=== PATIENT | female | born 2000 | race Caucasian/White ===

== ENCOUNTER 2018-02-22 13:29 | Emergency (ER) | payer OTHER, MEDICAID, SELFPAY ==
--- NOTE | 2018-02-22 13:44 | ED.WOUNDLAC ---
HPI - Wound/Laceration <DIANNA Nolasco - Last Filed: 02/22/18 22:15> General Chief Complaint: Wound/Laceration Stated Complaint: cut leg with glass Time Seen by Provider: 02/22/18 13:43 History of Present Illness HPI narrative: Healthy 17-year-old female here for complaint of laceration to her left lower extremity that happened after she dropped a glass bottle. She states that she had a soda bottle that was full of soda and dropped it on his side walk and it broke complete under pressure causing a piece of glass to come across and cut her leg. She denies any other injuries or concerns. Incident happened just prior to arrival. She does not know when her last tetanus was. She denies any other injuries or complaints. Related Data Home Medications Medication Instructions Recorded Confirmed No Known Home Medications 02/22/18 02/22/18 Review of Systems <DIANNA Nolasco - Last Filed: 02/22/18 22:15> Constitutional Denies chills, Denies fever(s), Denies lethargy and Denies weakness Eyes Denies change in vision, Denies eye discharge, Denies irritation and Denies loss of vision ENT Ears, Nose, Mouth, and Throat: Denies change in voice, Denies neck pain and Denies sore throat Cardiovascular Denies chest pain, Denies irregular heart rhythm, Denies lightheadedness, Denies palpitations, Denies dyspnea, Denies dyspnea on exertion and Denies orthopnea Respiratory Denies cough, Denies dyspnea, Denies dyspnea on exertion and Denies wheezing Gastrointestinal Gastrointestinal: Denies abdominal pain, Denies change in bowel habits, Denies diarrhea, Denies nausea and Denies vomiting Genitourinary Denies hematuria, Denies flank pain, Denies urinary incontinence and Denies urinary urgency Musculoskeletal Denies neck pain Comments: Laceration to left lower extremity Integumentary/Breasts Denies pruritus, Denies erythema, Denies rash and Denies wounds Neurologic Denies confusion, Denies loss of vision and Denies weakness Psychiatric Denies anxiety, Denies confusion, Denies depression, Denies homicidal ideation and Denies suicidal ideation Endocrine Denies palpitations Hematologic/Lymphatic Denies easy bruising Allergic/Immunologic Denies wheezing Exam <DIANNA Nolasco - Last Filed: 02/22/18 22:15> Initial Vital Signs Initial Vital Signs: Vital Signs Temperature 99.3 F 02/22/18 13:51 Pulse Rate 76 02/22/18 13:51 Respiratory Rate 18 02/22/18 13:51 Blood Pressure 120/69 02/22/18 13:51 Pulse Oximetry 97 02/22/18 13:51 Const General: cooperative and well developed Nutritional Appearance: well nourished Orientation: alert, awake, oriented x3 and not confused HENMT Mouth: oral mucosae normal and moist mucous membranes Eyes Conjunctivae: conjunctivae normal Sclera: sclerae normal Pupils: PERRL EOM: EOM intact bilaterally Resp Effort & Inspection: normal respiratory effort, able to speak in complete sentences, no respiratory distress and no use of accessory muscles Auscultation: clear to auscultation bilaterally, no rales, no rhonchi and no wheezes Cardio Rate: regular rate Rhythm: regular rhythm Heart Sounds: no click, no gallops, no murmurs and no rubs Pulses: normal peripheral pulses Skin General: no rashes or lesions noted, No jaundice and No petechiae Neuro General: alert, oriented x3, gait normal and no focal motor deficits Speech: speech normal Extrem Other: 3 cm laceration to the left brown area lateral aspect of the mid brown area. Distal sensation is intact. Distal pulses intact. Distal range of motion is intact. No foreign bodies. No deformities. <Len Waite DO - Last Filed: 02/23/18 08:33> Initial Vital Signs Initial Vital Signs: Vital Signs Temperature 99.3 F 02/22/18 13:51 Pulse Rate 76 02/22/18 13:51 Respiratory Rate 18 02/22/18 13:51 Blood Pressure 120/69 02/22/18 13:51 Pulse Oximetry 97 02/22/18 13:51 Procedures <DIANNA Nolasco - Last Filed: 02/22/18 22:15> Laceration Repair Laceration 1: Site: lower extremity Side (If applicable): left Size (cm): 3 Description: linear Depth: simple, single layer Local Anesthetic: lidocaine 1% Amount of anesthesia used (mL): 6 Pre-repair: wound explored and irrigated extensively Skin layer closed with: nylon Size (cm): 4-0 Number of sutures: 8 Technique: simple, interrupted Course <DIANNA Nolasco - Last Filed: 02/22/18 22:15> Orders Ordered: Discontinued Medications Acetaminophen (Tylenol) 650 mg PO NOW ONE Stop: 02/22/18 14:04 Last Admin: 02/22/18 14:17 Dose: 650 mg Diphtheria/Tetanus/Acell Pertussis (Adacel) 0.5 ml IM .ONCE ONE Stop: 02/22/18 14:04 Last Admin: 02/22/18 14:17 Dose: 0.5 ml Vital Signs - 8 hr 02/22/18 15:43 Temperature 99.0 F Pulse Rate 66 Respiratory Rate 18 Blood Pressure 98/62 Pulse Oximetry 99 <Len Waite DO - Last Filed: 02/23/18 08:33> Orders Ordered: Discontinued Medications Acetaminophen (Tylenol) 650 mg PO NOW ONE Stop: 02/22/18 14:04 Last Admin: 02/22/18 14:17 Dose: 650 mg Diphtheria/Tetanus/Acell Pertussis (Adacel) 0.5 ml IM .ONCE ONE Stop: 02/22/18 14:04 Last Admin: 02/22/18 14:17 Dose: 0.5 ml Vital Signs - 8 hr 02/22/18 15:43 Temperature 99.0 F Pulse Rate 66 Respiratory Rate 18 Blood Pressure 98/62 Pulse Oximetry 99 MDM - Wound/Laceration <DIANNA Nolasco - Last Filed: 02/22/18 22:15> Imaging Data tib fib: Radiologist's impression: Patient: Zoe Redman MR#: [id number] : 2000 Acct:[id number] Age/Sex: 17 / F Date of Service: 02/22/18 Loc: ED Accession Number: [id number] Procedure: XR tibia fibula LT 2V Ordering Provider: Ismael Warren PROCEDURE: XR TIBIA FIBULA RT 2V INDICATIONS: Laceration by broken glass to left proximal brown TECHNIQUE: 2 views of the tibia and fibula were acquired. COMPARISON: None. FINDINGS: Bones: No fractures or dislocations. No suspicious bony lesions. Soft tissues: No suspicious soft tissue calcifications or masses. No radiodense foreign bodies identified. IMPRESSION: 1. No fracture. No osseous lesion. If symptoms and/or clinical suspicion for pathology persists, further assessment with repeat radiographs (7-10 days) or advanced imaging (e.g. CT, MRI or bone scan) may be helpful. 2. No radiodense foreign bodies. Dictated by: Neda Mo MD, PhD on 02/22/2018 at 14:33 Approved by: Neda Mo MD, PhD on 02/22/2018 at 14:33 [facility] Narrative Medical decision making narrative: X-ray of the left lower extremity tib-fib area was obtained and was negative for any acute fractures or foreign bodies. Laceration was closed with 8 5-0 nylon sutures with good wound closure obtained. Sutures removed in 10 days. Keep wound area clean and dry for the next 24 hr. After that timeframe a shower briefly. Dress wound afterwards with bacitracin dressing. Dress wound daily with bacitracin and dressing until healed. [id number] Tylenol Motrin as needed for any discomfort. Follow up with primary care provider. Return emergency room for any worsening symptoms. Discharge Plan Departure Patient Disposition: Home, Self-Care Clinical Impression: Laceration of left lower extremity Discharge Date/Time: 02/22/18 15:44 Interventions: ED Discharge Assessment Last Done: 02/22/18 15:43 Instructions: DI for Laceration Repair -- Simple Activity Restrictions/Additional Instructions: X-ray of the left lower leg was negative for any fractures or foreign bodies. Laceration to left lower leg was closed with 8 sutures. The sutures will need to be removed in 10 days.Keep wound area clean and dry for the next 24 hr. After that timeframe a shower briefly. Dress wound afterwards with bacitracin dressing. Dress wound daily with bacitracin and dressing until healed. [id number] Tylenol Motrin as needed for any discomfort. Follow up with primary care provider. Return emergency room for any worsening symptoms. Prescriptions: No Action No Known Home Medications RF: 0 Referrals: Megan Neff PA-C [Primary Care Provider] - <Len Waite DO - Last Filed: 02/23/18 08:33> Cosign ED Attending Cocoature Attestation: I was immediately available in the department for consultation. Documentation has been reviewed. I agree with assessment and plan.
[2018-02-22 13:51] VITALS: BP 120/69; PULSE 76; RESP 18; TEMP 37.4; O2SAT 97
--- NOTE | 2018-02-22 14:03 | DI.RAD.S_ITS ---
PROCEDURE: XR TIBIA FIBULA RT 2V INDICATIONS: Laceration by broken glass to left proximal brown TECHNIQUE: 2 views of the tibia and fibula were acquired. COMPARISON: None. FINDINGS: Bones: No fractures or dislocations. No suspicious bony lesions. Soft tissues: No suspicious soft tissue calcifications or masses. No radiodense foreign bodies identified. IMPRESSION: 1. No fracture. No osseous lesion. If symptoms and/or clinical suspicion for pathology persists, further assessment with repeat radiographs (7-10 days) or advanced imaging (e.g. CT, MRI or bone scan) may be helpful. 2. No radiodense foreign bodies. Dictated by: Neda Mo MD, PhD on 02/22/2018 at 14:33 Approved by: Neda Mo MD, PhD on 02/22/2018 at 14:33
[2018-02-22] MEDS: TET,DIPH,PERTUSS(ACELL),VAC/PF 0.5 ML SYRINGE IM (14:17)
[2018-02-22] MEDS: ACETAMINOPHEN 325 MG TABLET 650 MG PO (14:17)
--- NOTE | 2018-02-22 14:36 | PC.NURSE ---
patient was at a local store when she dropped a drink bottle causing it to shatter and a piece of the glass cut her left anterior lower leg. she is unsure of when her last tetanus shot was. Denies any other injuries or cuts. Tetanus was updated at today's visit.
[2018-02-22 15:43] VITALS: BP 98/62; PULSE 66; RESP 18; TEMP 37.2; O2SAT 99
== END 2018-02-22 15:44 | disposition home or self-care (01) ==
PROVIDERS: Emergency Provider Nurse Practitioner Family; Family Provider Physician Assistant; PCP Physician Assistant
DX: S81.812A Laceration without foreign body, left lower leg, initial encounter (principal); W25.XXXA Contact with sharp glass, initial encounter
CPT/HCPCS: 12002; 73590; 90471; 99283; 90715

== ENCOUNTER → 2021-03-18 13:50 | Outpatient (CLI) | payer OTHER, MEDICAID, SELFPAY ==
[2021-03-18 15:45] LABS: Urine N gonorrhoeae NOT DETECTED
[2021-03-18 15:47] LABS: Urine Chlamydia NOT DETECTED
== END ==
PROVIDERS: PCP Family Medicine; Visit Provider Physician Assistant
DX: Z11.3 Encounter for screening for infections with a predominantly sexual mode of transmission (principal)
CPT/HCPCS: 81002; 87210; 87491; 87591

== ENCOUNTER → 2021-04-18 15:15 | Outpatient (CLI) | payer OTHER, MEDICAID, SELFPAY | PROVIDERS: PCP Family Medicine; Referring Provider Nurse Practitioner; Visit Provider Nurse Practitioner | DX: N34.3 Urethral syndrome, unspecified (principal) | CPT/HCPCS: 81002; 87077; 87086; 87186 ==

== ENCOUNTER → 2021-06-21 15:48 | Outpatient (CLI) | payer OTHER, MEDICAID, SELFPAY | PROVIDERS: PCP Family Medicine; Visit Provider Physician Assistant | DX: R35.0 Frequency of micturition (principal) | CPT/HCPCS: 81002; 87077; 87086; 87186 ==

== ENCOUNTER → 2021-07-19 14:45 | Outpatient (CLI) | payer OTHER, MEDICAID, SELFPAY ==
[2021-07-19 15:55] LABS: COVID19 -Nasal RAPID Negative (Negative)
== END ==
PROVIDERS: PCP Family Medicine; Visit Provider Physician Assistant
DX: Z20.822 Contact with and (suspected) exposure to COVID-19 (principal)
CPT/HCPCS: 87635

== ENCOUNTER → 2021-07-21 12:31 | Outpatient (CLI) | payer OTHER, MEDICAID, SELFPAY ==
[2021-07-21 13:24] LABS: COVID19 -Nasal RAPID POSITIVE (Negative)
== END ==
PROVIDERS: PCP Family Medicine; Visit Provider Physician Assistant
DX: Z20.822 Contact with and (suspected) exposure to COVID-19 (principal)
CPT/HCPCS: 87635

== ENCOUNTER → 2021-08-08 12:15 | Outpatient (CLI) | payer OTHER, MEDICAID, SELFPAY ==
[2021-08-08 14:04] LABS: COVID19 -Nasal RAPID Negative (Negative)
== END ==
PROVIDERS: PCP Family Medicine; Visit Provider Nurse Practitioner Critical Care Medicine
DX: Z20.822 Contact with and (suspected) exposure to COVID-19 (principal); J02.9 Acute pharyngitis, unspecified
CPT/HCPCS: 87070; 87077; 87635; 87880

== ENCOUNTER 2022-12-30 13:41 | Emergency (ER) | payer OTHER, MEDICAID, SELFPAY ==
[2022-12-30 13:50] VITALS: BP 136/73; PULSE 70; RESP 16; TEMP 36.8; O2SAT 99; BMI 20.9
--- NOTE | 2022-12-30 14:16 | ED_ITS ---
HPI - Wound/Laceration <DIANNA Almonte - Last Filed: 12/30/22 14:52> General Chief Complaint: Wound/Laceration Stated Complaint: SIB- L upper arm deep cut Time Seen by Provider: 12/30/22 14:12 Source: patient Mode of arrival: Ambulatory History of Present Illness HPI narrative: This is a 22-year-old female with history of self-harm by cutting, states it she had a hard time this morning and cut herself pretty bad and regrets it. States that she is talked with her therapist about this and denies any current homicidal or suicidal ideation or intention. She states that she cuts herself to help control the situation, came in for evaluation of her wound, not currently bleeding, states that she is a clean kitchen knife and her tetanus is up-to-date. Patient would like a test. Patient states that her and her boyfriend her , she is currently on her menses, having some struggles processing how to move forward but denies any suicidal or homicidal ideation. She is future oriented, states that she took her stress out on herself today because she was feeling poorly. She regarded it immediately and has talked to her therapist, her family and her support network about this. Related Data Home Medications Medication Instructions Recorded Confirmed fluoxetine 20 mg capsule 40 mg PO DAILY 09/28/20 08/08/21 Previous Rx's Medication Instructions Recorded human papillomav vac,9-sofia(PF) 0.5 0.5 ml IM ONCE #0.5 mL 07/15/18 mL IM suspension (Gardasil 9 (PF)) fluconazole 150 mg tablet 150 mg PO DAILY vag yeast 1 dose 03/18/21 (Diflucan) #1 tab phenazopyridine 100 mg tablet 100 mg PO TID PRN pain 6 doses #6 06/21/21 (Pyridium) tabs ondansetron 4 mg disintegrating 4 mg PO Q8H PRN nausea and 08/08/21 tablet vomiting #10 tabs Allergies Allergy/AdvReac Type Severity Reaction Status Date / Time No Known Allergies Allergy Uncoded 08/08/21 12:14 Patient History <DIANNA Almonte - Last Filed: 12/30/22 14:52> Medical History Anxiety Depression Social History Smoking Status: Current every day smoker Smokeless tobacco user: other (vape) alcohol intake: current substance use type: does not use Smoking Status: Current every day smoker tobacco type: vaping alcohol intake frequency: holidays/special occasions only Substance Use Type: marijuana Exam <DIANNA Almonte - Last Filed: 12/30/22 14:52> Narrative Exam Narrative: Reviewed vitals signs and nursing notes. General: Pleasant, sitting upright, in no acute distress, well groomed, afebrile Patient's left forearm has a linear laceration approximately 2 cm, no bleeding at this time, superficial, no evidence of tendon injury, vascular injury, or deep structure involvement. Skin: brisk capillary refill, without rash or wound Neuro: clear speech and normal cognition, A&O x3, GCS 15, no focal motor or sensation deficits Initial Vital Signs Initial Vital Signs: Vital Signs Temperature 98.2 F 12/30/22 13:50 Pulse Rate 70 12/30/22 13:50 Respiratory Rate 16 12/30/22 13:50 Blood Pressure 136/73 12/30/22 13:50 Pulse Oximetry 99 12/30/22 13:50 Oxygen Delivery Method Room Air 12/30/22 13:50 <Soumya Rodriguez DO - Last Filed: 12/30/22 19:09> Initial Vital Signs Initial Vital Signs: Vital Signs Temperature 98.2 F 12/30/22 13:50 Pulse Rate 70 12/30/22 13:50 Respiratory Rate 16 12/30/22 13:50 Blood Pressure 136/73 12/30/22 13:50 Pulse Oximetry 99 12/30/22 13:50 Oxygen Delivery Method Room Air 12/30/22 13:50 Procedures <DIANNA Almonte - Last Filed: 12/30/22 14:52> Laceration Repair Laceration 1: Site: upper extremity Size (cm): 2 Description: linear Depth: simple, single layer Local Anesthetic: lidocaine 2% Amount of anesthesia used (mL): 3 Pre-repair: wound explored, irrigated extensively and deep structures intact Skin layer closed with: nylon Skin layer suture size: 6-0 Number of sutures: 6 Technique: simple, interrupted and horizontal mattress Course <DIANNA Almonte - Last Filed: 12/30/22 14:52> Orders Ordered: ED Orders 12/30/22 14:01 Consult to [facility] Medical Radiation Therapist Stat Discontinued Medications Diphtheria/Tetanus/Acell Pertussis (Tet,Diph,Pertuss(Acell),Vac/Pf 0.5 Ml Syringe) 0.5 ml IM .ONCE ONE Stop: 12/30/22 14:14 Last Admin: 12/30/22 14:19 Dose: Not Given Documented By: PEYTON Lidocaine HCl (Lidocaine 2% Inj Sdv 5ml) 5 ml INJ INTRA-OP ONE Stop: 12/30/22 14:14 Last Admin: 12/30/22 14:24 Dose: 5 ml Documented By: PEYTON Vital Signs Vital signs: Vital Signs - 8 hr 12/30/22 13:50 Temperature 98.2 F Pulse Rate 70 Respiratory Rate 16 Blood Pressure 136/73 Pulse Oximetry 99 Oxygen Delivery Method Room Air <Soumya Rodriguez DO - Last Filed: 12/30/22 19:09> Orders Ordered: ED Orders 12/30/22 14:01 Consult to [facility] Medical Radiation Therapist Stat Discontinued Medications Diphtheria/Tetanus/Acell Pertussis (Tet,Diph,Pertuss(Acell),Vac/Pf 0.5 Ml Syringe) 0.5 ml IM .ONCE ONE Stop: 12/30/22 14:14 Last Admin: 12/30/22 14:19 Dose: Not Given Documented By: PEYTON Lidocaine HCl (Lidocaine 2% Inj Sdv 5ml) 5 ml INJ INTRA-OP ONE Stop: 12/30/22 14:14 Last Admin: 12/30/22 14:24 Dose: 5 ml Documented By: PEYTON Vital Signs Vital signs: Vital Signs - 8 hr 12/30/22 13:50 Temperature 98.2 F Pulse Rate 70 Respiratory Rate 16 Blood Pressure 136/73 Pulse Oximetry 99 Oxygen Delivery Method Room Air MDM - Wound/Laceration <DIANNA Almonte - Last Filed: 12/30/22 14:52> MDM Narrative Medical decision making narrative: Chief Complaint: Self-inflicted laceration Primary historian: Patient Multiple etiologies for patient's complaint considered including, but not limited to: Skin laceration, tendon injury, vascular injury, muscle laceration I have independently reviewed the patient's vital signs and nursing notes as well as prior records if available. Course of care: Social work when into meet the patient at 14:15 Patient met with social work, that went well, she has adequate support and has met with her therapist today. She does not have active suicidal ideation, her wound was repaired with 6 sutures, 1 mattress suture and the rest were simple, good wound edge approximation, patient's test was negative. She will follow up with her supportive network as needed, she is tearful grateful for her care, pleasant and cooperative. Her tetanus was updated a couple of years ago so no tetanus indicative today. Social considerations that may affect disposition: none Questions are addressed and there is agreement with the plan and for follow-up. I consulted with the ED attending physician Dr. Rodriguez as needed for higher level of care considerations and they were available for discussion and recommend ations regarding plan of care and diagnostic testing. Patient is appropriate for outpatient management. Discharge Plan Departure Patient Disposition: Home Clinical Impression: Self-inflicted laceration of left wrist Instructions: DI for Suture Removal, DI for Laceration Repair -- Complex Suture Activity Restrictions/Additional Instructions: *You have been diagnosed with a laceration to your left eye, thank you for coming in today and trusting us with your care, I am sorry for her you been feeling. Please follow-up with your support, crisis triage, and anybody who you trust. You have 6 sutures, please have these removed in 7 days, keep it clean and covered with a Band-Aid, apply antibiotic ointment as needed. *What to do: *Please continue to take your regular medications as directed. [ ] New medication prescriptions sent to your pharmacy: [ ] [ ] New medication written as a paper prescription [x] No new medications given *Please call and schedule follow up with your primary care provider in 2-3 days, at least for an update. Let them know you were seen in the Emergency Department for the above problem. We will electronically transmit a record of today's note if your PCP or specialist is in our system. *If you do not have a primary care provider please contact [phone] to establish care with one of the [facility] primary care providers. *Return to the Emergency Department for worsening symptoms, inability to keep liquids down, fever greater than 101F, chills, or other concerning symptom. Prescriptions: No Action fluoxetine 20 mg capsule 40 mg PO DAILY phenazopyridine [Pyridium] 100 mg tablet 100 mg PO TID PRN (Reason: pain) Qty: 6 0RF ondansetron 4 mg tablet,disintegrating 4 mg PO Q8H PRN (Reason: nausea and vomiting) Qty: 10 0RF human papillomav vac,9-sofia(PF) [Gardasil 9 (PF)] 0.5 mL suspension 0.5 ml IM ONCE Qty: 0.5 0RF fluconazole [Diflucan] 150 mg tablet 150 mg PO DAILY Qty: 1 0RF Rx Instructions: administer on day 1 of therapy Referrals: Deysi Smith DO [Primary Care Provider] - Stand Alone Forms: Patient Portal/API <Soumya Rodriguez DO - Last Filed: 12/30/22 19:09> Cosign ED Attending Cosignature Attestation: I was immediately available in the department for consultation. Documentation has been reviewed.
[2022-12-30] MEDS: LIDOCAINE 2% INJ SDV 5ML 5 ML INJ (14:24)
--- NOTE | 2022-12-30 14:38 | CM.SWNOTE ---
[employer]OR [employer] Assessment Note Patient is 22 y/o female who presents to ED due to concern for self injury with intent to hurt self for control. Patient endorses hx of self harm and denies SI and HI. Patient requests to speak with SUPERVISOR [employer]ORAT[employer]. SUPERVISOR LABORATORY enters room to meet with patient and RN. Patient endorses that she had an argument with her mother last night. Patient endorses she had an argument with her boyfriend this morning and proceeded to cut self with knife. Patient endorses she presents to ED to ensure her injury is going to heal and will not get infected. Patient presents as tearful, A/Ox4 and endorses remorse in harming herself. Patient endorses concern for anyone to find out about what [place] Patient endorses she has a counselor named Toby Bailon in [place] and she has an appt with her every Wednesday. Patient endorses her safety and denies intent to harm herself again. Patient endorses she is working on coping strategies in therapy. Patient endorses preference to d/c to home and states she plans to be with friends since she has the day off work. SUPERVISOR LABORATORY provides patient with list of crisis contacts. It is the opinion of this SUPERVISOR LAB[employer]ATORY that patient is safe to d/c to home. Plan: Patient to d/c to home upon medical clearance, patient to f/u with therapist and f/u with crisis contacts as needed. Kendra Lockwood, [employer]
== END 2022-12-30 14:48 | disposition home or self-care (01) ==
PROVIDERS: Emergency Provider Nurse Practitioner Critical Care Medicine; PCP Family Medicine
DX: S61.512A Laceration without foreign body of left wrist, initial encounter (principal); X78.9XXA Intentional self-harm by unspecified sharp object, initial encounter
CPT/HCPCS: 12001; 81025; 99283

== ENCOUNTER 2023-02-13 17:36 | Emergency (ER) | payer OTHER, MEDICAID, SELFPAY ==
[2023-02-13 18:06] VITALS: BP 135/76; PULSE 74; RESP 19; TEMP 36.4; O2SAT 100; BMI 20.7
--- NOTE | 2023-02-13 18:10 | DI.RAD.S_ITS ---
PROCEDURE: XR ACUTE ABDOMEN SERIES INDICATIONS: consitpated. TECHNIQUE: One view chest and two views of the abdomen were acquired. COMPARISON: None. FINDINGS: Surgical changes and devices: Status post ORIF of the left clavicle. Chest: Lungs are clear. Heart size is normal. No pleural effusions. No pneumoperitoneum. Abdomen: Bowel gas pattern is nonobstructive. No suspicious calcifications. Visualized solid organ contours appear normal. Moderate fecal burden seen in the region of the ascending colon and distal descending colon. Bones: No suspicious bony lesions. IMPRESSION: Nonobstructive bowel gas pattern. Moderate fecal load noted in the ascending colon and descending colon. No acute cardiopulmonary abnormalities. Dictated by: Driss Alcaraz M.D. on 02/13/2023 at 18:30 Approved by: Driss Alcaraz M.D. on 02/13/2023 at 18:31
--- NOTE | 2023-02-13 20:49 | ED.GENADULT ---
HPI - General Adult General Chief complaint: Abdominal Pain Stated complaint: Constipation, ABD pain Time Seen by Provider: 02/13/23 20:48 Source: patient Mode of arrival: Family Vehicle History of Present Illness HPI narrative: 22-year-old woman with a history of anxiety depression and intermittent episodes of constipation. She states that she typically has a bowel movement most days. She does not have intermittent diarrhea and constipation. She notes that she has not had a bowel movement for the past 5 days and is having increasing left-sided abdominal pain. She states that she has not tried any laxatives because she has heard that they can be addicting. She denies fevers, cough, chills, vomiting. Related Data Home Medications Medication Instructions Recorded Confirmed fluoxetine 20 mg capsule 40 mg PO DAILY 09/28/20 08/08/21 Previous Rx's Medication Instructions Recorded human papillomav vac,9-sofia(PF) 0.5 0.5 ml IM ONCE #0.5 mL 07/15/ mL IM suspension (Gardasil 9 (PF)) fluconazole 150 mg tablet 150 mg PO DAILY vag yeast 1 dose 03/18/21 (Diflucan) #1 tab phenazopyridine 100 mg tablet 100 mg PO TID PRN pain 6 doses #6 06/21/21 (Pyridium) tabs ondansetron 4 mg disintegrating 4 mg PO Q8H PRN nausea and 08/08/21 tablet vomiting #10 tabs Allergies Allergy/AdvReac Type Severity Reaction Status Date / Time No Known Allergies Allergy Uncoded 02/13/23 18:10 Review of Systems Review of Systems Narrative: Pertinent positive and negative findings as per HPI Patient History Medical History Anxiety Depression Social History Smoking Status: Current every day smoker Smokeless tobacco user: other (vape) alcohol intake: current substance use type: does not use Smoking Status: Current every day smoker tobacco type: vaping alcohol intake frequency: holidays/special occasions only Substance Use Type: marijuana Exam Initial Vital Signs Initial Vital Signs: Vital Signs Temperature 97.6 F 02/13/23 18:06 Pulse Rate 74 02/13/23 18:06 Respiratory Rate 19 02/13/23 18:06 Blood Pressure 135/76 02/13/23 18:06 Pulse Oximetry 100 02/13/23 18:06 Oxygen Delivery Method Room Air 02/13/23 18:06 General: Healthy appearing, in no acute distress. Able to give a complete and coherent history. Well-nourished well-developed Respiratory: Lungs are clear to auscultation, no wheezing no rales no rhonchi. Full and symmetrical air movement Cardiac: Regular rate and rhythm no murmurs no bruits Abdomen: Soft, nontender, good bowel tones, no flank pain Skin: Warm and dry, no rashes Neurologic: Grossly neurologically intact with no obvious asymmetries or abnormalities Extremities: No trauma, well perfused Psych: Cooperative, appropriate insight and affect Course Orders Ordered: Discontinued Medications Magnesium Citrate (Magnesium Citrate 300 Ml Solution) 300 ml PO NOW ONE Stop: 02/13/23 20:59 Last Admin: 02/13/23 21:07 Dose: 300 ml Documented By: ELLI Vital Signs Vital signs: Vital Signs - 8 hr 02/13/23 18:06 Temperature 97.6 F Pulse Rate 74 Respiratory Rate 19 Blood Pressure 135/76 Pulse Oximetry 100 Oxygen Delivery Method Room Air Medical Decision Making [facility] Narrative Medical decision making narrative: CC: Abdominal pain with no bowel movement for 5 days, acute issue uncertain prognosis Complicating co-morbidities: Depression with anxiety Data collected from: patient, partner Differential considered: The appendicitis, diverticulitis, bowel obstruction, pelvic inflammatory disease, constipation Exam documented above, pertinent findings include: Fair benign exam Imaging studies independently reviewed: Abdominal x-ray shows moderate amount of fecal loading Treatments: She is discharged home with a bottle of magnesium citrate Discussion: 22-year-old woman with fairly benign exam moderate abdominal pain with x-ray suggesting fecal loading and no bowel movement for the last 5 days. Discussed use of MiraLax if she goes more than a day without a bowel movement and she is discharged home with a bottle of magnesium citrate fully to encourage significant bowel movement and resolution of her pain. Reviewed signs and symptoms of appendicitis, reasons to return to the emergency department and she is safe for discharge home Discharge Plan Departure Patient Disposition: Home Clinical Impression: Constipation Qualifiers: Constipation type: unspecified constipation type Qualified Code(s): K59.00 - Constipation, unspecified Abdominal pain Qualifiers: Abdominal location: generalized Qualified Code(s): R10.84 - Generalized abdominal pain Instructions: DI for Constipation Activity Restrictions/Additional Instructions: Thank you for coming in today I suspect that your abdominal pain really is all from constipation. Your x-ray shows quite a bit of stool and no other significant findings. When going to suggest that you drank the whole bottle of magnesium citrate and see if that helps gets things moving. Increasing water extra fruit, the cheries or ripe right now and they are great to help with constipation, are all helpful. For your chronic constipation, I would recommend getting some MiraLax, the generic version is just fine. This is not in fact a laxative, it just pulls water into your colon and causes softer stool. I would recommend a capful a day to help prevent constipation. If you find that you are getting worse or develop any new symptoms, please feel free to return to the emergency department for further evaluation. Prescriptions: No Action fluoxetine 20 mg capsule 40 mg PO DAILY phenazopyridine [Pyridium] 100 mg tablet 100 mg PO TID PRN (Reason: pain) Qty: 6 0RF ondansetron 4 mg tablet,disintegrating 4 mg PO Q8H PRN (Reason: nausea and vomiting) Qty: 10 0RF human papillomav vac,9-sofia(PF) [Gardasil 9 (PF)] 0.5 mL suspension 0.5 ml IM ONCE Qty: 0.5 0RF fluconazole [Diflucan] 150 mg tablet 150 mg PO DAILY Qty: 1 0RF Rx Instructions: administer on day 1 of therapy Referrals: Deysi Smith DO [Primary Care Provider] - Stand Alone Forms: Patient Portal/API
[2023-02-13 21:05] VITALS: BP 118/72; PULSE 62; RESP 18; O2SAT 98
[2023-02-13] MEDS: MAGNESIUM CITRATE 300 ML SOLUTION PO (21:07)
== END 2023-02-13 21:07 | disposition home or self-care (01) ==
PROVIDERS: Emergency Provider Emergency Medicine; PCP Family Medicine
DX: R10.84 Generalized abdominal pain (principal); K59.00 Constipation, unspecified
CPT/HCPCS: 74022; 99283

== ENCOUNTER 2023-04-13 12:10 | Emergency (ER) | payer OTHER, MEDICAID, SELFPAY ==
[2023-04-13 12:10] VITALS: BP 166/104; PULSE 110; RESP 16; TEMP 37.1; O2SAT 97; BMI 19.4
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
--- NOTE | 2023-04-13 12:35 | PC.NURSE ---
Phone call from mother Velvet Weeks: [phone]: fully aware of privacy issues, wanting to give back ground and information. Mother states that patient attempted suicide one month ago. has recently been violent and more reactive over past 2-3 days. has h/o cutting behaviors. Noted break up with boyfriend 2 days ago. Mother states she has been abusing benzodiazapine and possible opiods. Pt's mother and sister have received multiple texts stating that she is going to kill herself. They are going to email me screen shots of both. Dr. Khan and Kyaw PROGRAM COORDINATOR aware.
[2023-04-13] MEDS: LORazepam 0.5 MG TABLET 1 MG PO (12:52)
[2023-04-13 13:01] LABS: Add Manual Diff / Slide Review NO; Basophils Absolute Auto 0 /uL (0-100); Basophils Percent Auto 0.2 % (0-2); Eosinophils Absolute Auto 0 /uL (0-450); Hematocrit 37.7 % (36-46); Hemoglobin 12.8 g/dL (12.0-16.0); Lymphocytes Absolute Auto 1500 /uL (1100-4500); Lymphocytes Percent Auto 9.5 % (25-40); Mean Corpuscular Hemoglobin 31.3 PG (26-34); Monocytes Absolute Auto 800 /uL (0-900); Neutrophils Absolute Auto 13200 /uL (1500-7000); Neutrophils Percent Auto 85.3 % (50-75); Platelet Count 270 X10^3/uL (150-400); Red Cell Distribution Width 11.8 % (11.6-14.8); White Blood Cell Count 15.5 X10^3/uL (4.5-11.0)
[2023-04-13 13:15] LABS: Alanine Aminotransferase 18 IU/L (<35); Albumin 5.1 g/dL (3.5-5.0); Albumin Globulin Ratio 1.5 (1.0-2.8); Alkaline Phosphatase 57 U/L (38-126); Aspartate Aminotransferase 28 IU/L (14-36); BUN Creatinine Ratio 32.9 (6-22); Bilirubin Total 2.1 mg/dL (0.2-1.3); Blood Urea Nitrogen 24 mg/dL (7-17); Calcium 9.5 mg/dL (8.4-10.2); Carbon Dioxide 20 mmol/L (22-32); Chloride 104 mmol/L (98-107); Estimated Glomerular Filt Rate > 60 mL/min (>60); Ethanol (ETOH) < 10 mg/dL; Globulin 3.5 g/dL (1.7-4.1); Glucose 98 mg/dL (70-100); HEMOLYSIS < 15 (0-50); Sodium 139 mmol/L (137-145); Total Protein 8.6 g/dL (6.3-8.2)
[2023-04-13 13:20] LABS: UR Morphine/Opiate cutoff 300 Negative (Negative); Ur Creatinine Normal (Normal); Ur Specific Gravity Normal (Normal); Urine Amphetamines Negative (Negative); Urine Barbiturates Negative (Negative); Urine Benzodiazepines Positive (Negative); Urine Cocaine Negative (Negative); Urine MDMA Negative (Negative); Urine Methamphetamines Negative (Negative); Urine Phencyclidine Negative (Negative); Urine Tetrahydrocannabinol Positive (Negative); Urine pH Normal (Normal)
[2023-04-13 13:21] LABS: Urine Methadone Negative (Negative); Urine Oxycodone Negative (Negative); Urine Tricyclic Antidepressant Negative (Negative)
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
[2023-04-13 13:26] LABS: COVID19 -Nasal RAPID Negative (Negative)
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
[2023-04-13 13:59] LABS: Thyroid Stimulating Hormone 1.22 uIU/mL (0.47-4.68)
[2023-04-13] MEDS: OLANZapine ODT 10 MG TAB PO (14:02)
--- NOTE | 2023-04-13 14:25 | PC.NURSE ---
UNEMPLOYMENT BENEFITS CLAIMS TAKER Note: Pt was allowed to have her phone back for 15 minutes in order to get her cat situation settled. Pt stated in a loud voice to the person on the other side of the phone that they let the corporate specialist into the house. Pt's demeanor switches very frequently as she talks on the phone from being overly emotional with tears to stoic and blunt tones with strict facial expressions. This sitter remains at bedside.
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
[2023-04-13] MEDS: NICOTINE 21 MG PATCH TOP (14:50)
[2023-04-13 15:17] LABS: Bacteria Urine None Seen; Culture Indicated Urine Cult Not Indicated; Other Crystals Urine Many Amorphous; RBC Urine None Seen (0-5/HPF); Squamous Epithelial Cell Urine 1-5 /HPF (0-5/HPF); Transitional Epi Cells Urine 0-1/HPF (0-5/HPF); WBC Urine None Seen (0-5/HPF)
[2023-04-13 15:27] VITALS: PULSE 74
--- NOTE | 2023-04-13 15:32 | PC.NURSE ---
RT and Dior RN at bedside for EKG. patient cooperative. provider aware.
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
--- NOTE | 2023-04-13 17:39 | PC.NURSE ---
Addendum entered by Sandra Ruiz CNA 04/13/23 18:02: MORRIS NOTE: pt on i pad talking to Biju the DCR; pt is asking what happens if she does not want to speak to DCR; asks DCR if she can just go home she has therapy tomorrow DCR tells her they cant get a hold of her therapist; pt tells DCR her mom is psychotic; DCR is asking if she has anyone she can be with pt states yes sister rao and mendoza; DCR asking if they are willing to supervise her behavior; pt telling DCR if she goes home she will go get treatment herself; pt telling DCR she wants to take herself to treatment and vape; pt is telling DCR her behavior was due to her mom states her mom wants to abandon her states she's exactly like her mom then starts crying and says she doesn't want to talk about it; DCR is asking why is their certain pill bottles in her house pt states alejandra my mom left them there and i'm not the one taking them DCR states he will call her sisters pt does not want sisters called; Pt ask DCR for boyfriend to be called first DCR question if this is ex or current bf since there was allegations of him cheating on her pt tells DCR just let it go he's my boyfriend and i'm over it i pad was then passed over to EXTRUSION FORMER this sitter remains at bedside Original Note: MORRIS NOTE: pt on i pad talking to Biju the DCR; pt is asking what happens if she does want to speak to DCR; asks DCR if she can just go home she has therapy tomorrow DCR tells her they cant get a hold of her therapist; pt tells DCR her mom is psychotic; DCR is asking if she has anyone she can be with pt states yes sister rao and mendoza; DCR asking if they are willing to supervise her behavior; pt telling DCR if she goes home she will go get treatment herself; pt telling DCR she wants to take herself to treatment and vape; pt is telling DCR her behavior was due to her mom states her mom wants to abandon her states she's exactly like her mom then starts crying and says she doesn't want to talk about it; DCR is asking why is their certain pill bottles in her house pt states alejandra my mom left them there and i'm not the one taking them DCR states he will call her sisters pt does not want sisters called; Pt ask DCR for boyfriend to be called first DCR question if this is ex or current bf since there was allegations of him cheating on her pt tells DCR just let it go he's my boyfriend and i'm over it i pad was then passed over to EXTRUSION FORMER this sitter remains at bedside
--- NOTE | 2023-04-13 18:13 | PC.NURSE ---
ESCALATOR SERVICE MECHANIC NOTE: pt refused lunch from RN; this sitter remains at bedside
--- NOTE | 2023-04-13 18:59 | PC.NURSE ---
Addendum entered by Nawaf Gurrola CNA 04/13/23 20:03: Patient has been laying down and quite for around 20 mintues, per charge authorizer Radha door opened and cracked, 1:[address] Addendum entered by Nawaf Gurrola CNA 04/13/23 19:34: Patient counties to scream, and bang on door. Patient given meds by RNs, door closed, 1:[address] Addendum entered by Nawaf Gurrola CNA 04/13/23 19:26: Patient speaking with DCR and social work, patient become upset, patient screaming I fing hate you all. Who the f are you all to determine how I feel. Door closed as by charge authorizerstacy Garcia. Original Note: This FLAT EXAMINER took over 1:1 on patient at 1900, patient laying on gurney
[2023-04-13 19:24] VITALS: BP 111/51; PULSE 70; RESP 16; TEMP 36.4; O2SAT 97
--- NOTE | 2023-04-13 19:29 | PC.NURSE ---
adoption social worker informed patient that they are [place] transferred to [facility] and they are detained. Patient began wailing, yelling and hitting her head against the door. Charge nurse aware, one to one sitter with patient.
--- NOTE | 2023-04-13 19:31 | CM.SWNOTE ---
ED MASONRY INSTALLER Note MASONRY INSTALLER receives call from Biju LOZADA and he reports he is assigned. He states it will be a few hours and asks for MASONRY INSTALLER to call family to request declarations. MASONRY INSTALLER calls patient's mother Josseline (Ph. # [phone]) and requests her to fill out declaration paperwork. She states she can fill it out if it is emailed to her and states she will share it with her daughters (Patient's sisters). Patient's sister Sushant arrives to ED to fill out declaration paperwork. Sushant states her mother will be filling one out as well. DCR evaluates patient via Ipad, patient requests to go home and for family to supervise patient. Biju states he will call family. Biju calls back and states that patient is detained and accepted at [facility]. Accepting provider is DIANNA Felton, jame Woodson. Biju faxes CHARLES paperwork and MASONRY INSTALLER provides Ipad and detainment CHARLES paperwork to patient to serve patient. Patient proceeds to move away from ipad, scream and yell. Due to patient's irractic behaviors propellant charge zone assembler shuts the door and patient is eventually medicated. [facility] sets up S transport, they will arrive at 2034. MASONRY INSTALLER calls [facility] and informs intake of patient's ETA. Plan: patient to transport to [facility] on [facility]LES hold this evening. JUANA BirminghamSW
--- NOTE | 2023-04-13 19:32 | PC.NURSE ---
Getting patient medicated to help calm patient down for their safety.
[2023-04-13] MEDS: diphenhydrAMINE 50 MG/ML VIAL IM (19:35)
[2023-04-13] MEDS: LORazepam 2 MG/ML INJ IM (19:35)
[2023-04-13] MEDS: HALOPERIDOL 5 MG/ML VIAL IM (19:36)
--- NOTE | 2023-04-13 19:47 | PC.NURSE ---
1927: Pt told that she was being detained and going to [facility] on Involuntary hold. Pt started yelling, screaming, running toward door, demonstrate assaultive behaviors toward staff (kicking into air, throwing pillow) but no contact made with staff. Unable to verbally de-escalate. Pt at acute risk of harming others. Dr. Khan made aware, seclusion ordered and door was shut. Medications ordered. Pt given IM injections of ativan & haldol/benedryl into bilateral thighs. Pt continued to scream/ yell/running at door.
--- NOTE | 2023-04-13 20:02 | PC.NURSE ---
Pt observed laying on bed. No longer yelling. Easy work of breathing. Not meeting eye contact. Seclusion discontinued.
--- NOTE | 2023-04-13 20:34 | PC.NURSE ---
Called [facility] and gave report to Albert GOMEZ at .
== END 2023-04-13 21:10 ==
PROVIDERS: Emergency Medicine; Emergency Provider Emergency Medicine; PCP Family Medicine
DX: R45.851 Suicidal ideations (principal); F32.A Depression, unspecified; Z20.822 Contact with and (suspected) exposure to COVID-19
CPT/HCPCS: 36415; 80053; 80305; 80320; 81003; 81015; 81025; 84443; 85025; 87635; 93005; 93010; 96372; 99285; C9803; J1200; J1630; J2060

== ENCOUNTER 2023-07-23 18:30 | Emergency (ER) | payer OTHER, SELFPAY ==
[2023-07-23] VITALS (7 sets, daily range): BP systolic 117–156; BP diastolic 61–88; PULSE 64–82; RESP 18–24; TEMP 37.2; O2SAT 97–100; BMI 26.4
--- NOTE | 2023-07-23 22:40 | ED.DENTAL ---
HPI - Dental/Oral General Chief complaint: Dental/Oral Stated complaint: WISDOM TEETH OUT 10DAYS AGO/DRY SOCKET/SMELL PAIN Time Seen by Provider: 07/23/23 22:20 Source: patient Mode of arrival: Ambulatory History of Present Illness HPI Narrative: 22-year-old female previously healthy is 10 days status post wisdom tooth extraction x4 by Dr. Olsen. She is complaining of pain bilaterally both upper and lower. She is not had fevers. She had a prescription for Timberlake initially which she is now out of. She is also been using ibuprofen and acetaminophen for pain. She reports it hurts to open her mouth. Her oral surgeon did send a prescription for antibiotics. She has a prescription from her oral surgeon for amoxicillin. Related Data Previous Rx's Medication Instructions Recorded hydrocodone 5 mg-acetaminophen 325 1 tab PO Q6H PRN pain #10 tabs 07/23/23 mg tablet Allergies Allergy/AdvReac Type Severity Reaction Status Date / Time No Known Drug Allergies Allergy Verified 04/13/23 12:25 Patient History Medical History Anxiety Depression Social History Smoking Status: Current every day smoker Smokeless tobacco user: other (vape) alcohol intake: current substance use type: does not use Smoking Status: Current every day smoker tobacco type: vaping alcohol intake frequency: holidays/special occasions only Substance Use Type: marijuana Exam Initial Vital Signs Initial Vital Signs: Vital Signs Temperature 98.9 F 07/23/23 18:40 Pulse Rate 75 07/23/23 18:40 Respiratory Rate 24 07/23/23 18:40 Blood Pressure 156/83 H 07/23/23 18:40 Pulse Oximetry 99 07/23/23 18:40 Oxygen Delivery Method Room Air 07/23/23 18:40 Const General: No acute distress HENPR Head: normocephalic and atraumatic Mouth: oropharynx normal, moist mucous membranes and other (Extraction sockets did not appear to be acutely inflamed, no purulence.) Neck Other: No cervical adenopathy, no sublingual swelling. Voice is normal Resp Effort & Inspection: normal respiratory effort Course Orders Ordered: Discontinued Medications Hydrocodone Bitart/Acetaminophen (Hydrocodone/Acet 5/325 Prepack) 1 bottle MISC DIRECTED ONE Stop: 07/23/23 22:30 Vital Signs Vital signs: Vital Signs - 8 hr 07/23/23 18:40 07/23/23 20:22 07/23/23 20:22 Temperature 98.9 F Pulse Rate 75 75 Respiratory Rate 24 Blood Pressure 156/83 H 138/88 Pulse Oximetry 99 100 Oxygen Delivery Method Room Air 07/23/23 20:30 07/23/23 20:30 07/23/23 21:00 Temperature Pulse Rate 73 82 Respiratory Rate Blood Pressure 117/72 Pulse Oximetry 98 97 Oxygen Delivery Method 07/23/23 21:01 07/23/23 21:01 07/23/23 21:30 Temperature Pulse Rate 74 64 Respiratory Rate Blood Pressure 118/61 Pulse Oximetry 98 97 Oxygen Delivery Method MDM - Dental/Oral MDM Narrative Medical decision making narrative: 22-year-old female without significant comorbidities presenting with dental pain after wisdom tooth extraction. This happened 10 days ago. She is reporting continued significant pain but does not appear to be infected. I checked the SWITCH INSPECTOR, she did indeed receive 1 or 2 prescriptions for Timberlake from her oral surgeon. Otherwise she is not been receiving narcotics. I do not think that she has significant infection, I think it is appropriate to continue her antibiotics and I wrote a prescription for just a few more Timberlake recommended she continue to use ibuprofen and then follow up with her oral surgeon. Discharge Plan Departure Patient Disposition: Home Clinical Impression: Pain, dental Activity Restrictions/Additional Instructions: Examination tonight is reassuring. I do not think that there is a serious infection occurring I do think it is appropriate to take the previously prescribed antibiotic. You can continue with ibuprofen 600-800 mg 3 times a day. Use Tylenol, 650-975 mg up to every 6 hours. I have also sent a prescription for a few Timberlake, recall that each Timberlake has 325 mg of acetaminophen in it, your total daily dose of acetaminophen from all sources should not exceed 3000 mg. Follow up with your oral surgeon in the coming week. Recheck in the emergency department for fevers or facial swelling. Prescriptions: New hydrocodone-acetaminophen 5-325 mg tablet 1 tab PO Q6H PRN (Reason: pain) Qty: 10 0RF Referrals: Deysi Smith DO [Primary Care Provider] - Stand Alone Forms: Patient Portal/API
[2023-07-23] MEDS: HYDROCODONE/ACET 5/325 PREPACK 1 BOTTLE MISC (22:41)
== END 2023-07-23 22:50 | disposition home or self-care (01) ==
PROVIDERS: Emergency Provider Emergency Medicine; PCP Family Medicine
DX: K08.89 Other specified disorders of teeth and supporting structures (principal)
CPT/HCPCS: 99281; 99283